=== PATIENT | female | born 1985 | race Caucasian/White ===

== ENCOUNTER 2016-08-10 17:01 | Emergency (ER) | payer OTHER ==
--- NOTE | 2016-08-10 17:32 | ED ---
Female Urogenital HPI - General Chief complaint: Urogenital Stated complaint: female Time Seen by Provider: 08/10/16 17:12 Source: patient, RN notes reviewed, old records reviewed Mode of arrival: ambulatory Limitations: no limitations - History of Present Illness Initial comments: Patient is a 31-year-old female chief complaint of vaginal discharge and itching for approximately one week. Patient reports that she had intercourse on July 27. She reports that she had no symptoms after that. Patient states that she's had no dysuria. She just reports vaginal discharge and itching. Denies any abdominal pain, fever or chills.. She is a smoker, states that she has a chronic cough. She denies any chance of . Patient denies any recent fever, chills, shortness of breath, chest pain, back pain, abdominal pain , nausea vomiting, numbness or tingling, dysuria or hematuria, constipation or diarrhea, headaches or visual changes, or any other current symptoms Last Menstrual Period: 07/27/16 - Related Data Home Medications Medication Instructions Recorded Confirmed Pregabalin [Lyrica] 50 mg PO BID 09/12/15 03/17/16 Amitriptyline HCl 25 mg PO DAILY 11/13/15 03/17/16 Ergocalciferol [Vitamin D2 50,000 unit PO TU 11/13/15 03/17/16 (DRISDOL)] Ibuprofen 600 mg PO Q6H PRN 11/13/15 03/17/16 Previous Rx's Medication Instructions Recorded FLUoxetine HCL [PROzac] 20 mg PO DAILY #30 cap 11/17/15 QUEtiapine [SEROquel] 150 mg PO HS #45 tab 11/17/15 Allergies Allergy/AdvReac Type Severity Reaction Status Date / Time No Known Allergies Allergy Verified 03/17/16 16:23 Review of Systems ROS Statement: Those systems with pertinent positive or pertinent negative responses have been documented in the HPI. ROS Other: All systems not noted in ROS Statement are negative. Past Medical History Past Medical History: No Reported History History of Any Multi-Drug Resistant Organisms: None Reported Past Surgical History: Orthopedic Surgery Additional Past Surgical History / Comment(s): left arm sx Past Psychological History: Anxiety, Bipolar, Depression Smoking Status: Current every day smoker Past Alcohol Use History: None Reported Past Drug Use History: None Reported General Exam - General Exam Comments Initial Comments: Well-appearing 31-year-old female. No distress. Limitations: no limitations General appearance: alert, in no apparent distress Head exam: Present: atraumatic, normocephalic, normal inspection Eye exam: Present: normal appearance, PERRL, EOMI. Absent: scleral icterus, conjunctival injection, periorbital swelling ENT exam: Present: normal exam, normal oropharynx, mucous membranes moist, TM's normal bilaterally Neck exam: Present: normal inspection. Absent: tenderness, meningismus, lymphadenopathy Respiratory exam: Present: normal lung sounds bilaterally. Absent: respiratory distress, wheezes, rales, rhonchi, stridor Cardiovascular Exam: Present: regular rate, normal rhythm, normal heart sounds. Absent: systolic murmur, diastolic murmur, rubs, gallop, clicks GI/Abdominal exam: Present: soft, normal bowel sounds. Absent: distended, tenderness, guarding, rebound, rigid Speculum exam: Present: vaginal discharge (Patient has purulent green vaginal discharge.), cervical discharge. Absent: normal speculum exam, erythema, vaginal bleeding, foreign body, tissue, laceration By manual exam: Present: normal by manual exam. Absent: cervical motion tenderness, adnexal tenderness, adnexal mass, uterine enlargement Extremities exam: Present: normal inspection, full ROM, normal capillary refill. Absent: tenderness, pedal edema, joint swelling, calf tenderness Back exam: Present: normal inspection Neurological exam: Present: alert, oriented X3, CN II-XII intact Psychiatric exam: Present: normal affect, normal mood Skin exam: Present: warm, dry, intact, normal color. Absent: rash Course Vital Signs 08/10/16 17:05 Temperature 98.1 F Pulse Rate 108 H Respiratory 17 Rate Blood Pressure 123/58 O2 Sat by Pulse 95 Oximetry Medical Decision Making - Medical Decision Making Patient is a 31-year-old female with chief complaint of 4 days of vaginal discharge and itching. Patient has significant purulent green/yellow vaginal discharge. She has concern for sexually transmitted infection will be treated with Rocephin, azithromycin and Flagyl. 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 Patient does test positive for Trichomonas. Patient will be treated with Rocephin and azithromycin and Flagyl. Patient advised to abstain from sexual intercourse for the next 2 weeks. Patient agrees with treatment plan will comply. Return parameters were discussed. - Lab Data Lab Results 08/10/16 08/10/16 08/10/16 Range/Units 17:51 17:51 17:51 Urine Color Yellow Urine Appearance Cloudy H (Clear) Urine pH 6.0 (5.0-8.0) Ur Specific [place] 1.022 (1.001-1.035) Urine Protein Trace H (Negative) Urine Glucose (UA) Negative (Negative) Urine Ketones Negative (Negative) Urine Blood Small H (Negative) Urine Nitrite Negative (Negative) Urine Bilirubin Negative (Negative) Urine Urobilinogen <2.0 (<2.0) mg/dL Ur Leukocyte Esterase Large H (Negative) Urine RBC 55 H (0-5) /hpf Urine WBC 45 H (0-5) /hpf Urine WBC Clumps Moderate H (None) /hpf Ur Squamous Epith Cells 26 H (0-4) /hpf Urine Bacteria Moderate H (None) /hpf Urine Mucus Rare H (None) /hpf Urine HCG, Qual Not Detected (Not Detectd) Trichomonas Ag (Rapid) Positive H (Negative) Disposition Clinical Impression: Trichomonal infection, Sexually transmitted disease Disposition: HOME SELF-CARE Condition: Good Instructions: Sexually Transmitted Diseases (ED), Trichomoniasis (ED) Additional Instructions: Avoid sexual intercourse for 2 weeks. Patient advised to follow-up with primary care provider if symptoms continue to persist. Return to emergency Department if any alarming signs or symptoms occur. Referrals: Faizan Allen MD [Primary Care Provider] - 1-2 days Time of Disposition: 18:23
[2016-08-10] MEDS ORDERED: AZITHROMYCIN 500 MG TAB PO STA (17:43)
[2016-08-10] MEDS ORDERED: metroNIDAZOLE 500 MG TAB PO STA (17:43)
[2016-08-10] MEDS ORDERED: cefTRIAXone 250 MG VIAL IM STA (17:43)
[2016-08-10] MEDS ORDERED: ONDANSETRON 4 MG ODT STARTER PACK 2 TAB BTL PO STA (17:43)
[2016-08-10 18:10] LABS: Appearance,Urine Cloudy (Clear); Bacteria,Urine Moderate /hpf; Bilirubin,Urine Negative (Negative); Glucose,Urine (UA) Negative (Negative); Ketones,Urine Negative (Negative); Leukocyte Esterase,Urine Large (Negative); Mucus,Urine Rare /hpf; Nitrite,Urine Negative (Negative); Particle Count 15213; Protein,Urine Trace (Negative); RBC,Urine 55 /hpf (0-5); Specific Gravity,Urine 1.022 (1.001-1.035); Squamous Epithelial Cell,Urine 26 /hpf (0-4); UA Billing (MACRO vs. MICRO) MICRO; Urobilinogen,Urine <2.0 mg/dL (<2.0); WBC,Urine 45 /hpf (0-5)
[2016-08-10 18:33] VITALS: BP 149/55; PULSE 90; RESP 18; TEMP 97.7
[2016-08-14 10:10] LABS: Chlamydia/GC Source Vaginal
== END 2016-08-10 18:34 | disposition home or self-care (01) ==
LOC: EC 17:01
DX: A59.9 Trichomoniasis, unspecified (principal); A64 Unspecified sexually transmitted disease; F31.9 Bipolar disorder, unspecified; F41.9 Anxiety disorder, unspecified; F17.200 Nicotine dependence, unspecified, uncomplicated; Z79.899 Other long term (current) drug therapy
CPT/HCPCS: 87591; 87491; 81001; 81025; 87808; 87070; 99284; 96372; J0696; S0119; 87205

== ENCOUNTER 2016-11-07 20:29 | Emergency (ER) | payer OTHER ==
[2016-11-07 21:14] VITALS: BP 140/78; PULSE 101; RESP 18; TEMP 97.8
--- NOTE | 2016-11-07 21:28 | ED ---
General Adult HPI - General Chief complaint: Skin/Abscess/Foreign Body Stated complaint: rash Time Seen by Provider: 11/07/16 21:17 Source: patient, RN notes reviewed Mode of arrival: ambulatory Limitations: no limitations - History of Present Illness Initial comments: Patient is a 31-year-old female who presents emergency room today with chief complaint of a rash to the hand on the right side in left forearm. Also left ear left-sided cheek. Denies any new contacts. Does admit to history of multiple topical ALLERGIES. 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 She states that she's tried nitro with some relief of symptoms but then as it wears off that it gets worse. Patient denies any recent fever, chills, shortness of breath , chest pain, back pain, abdominal pain, nausea or vomiting, numbness or tingling, dysuria or hematuria, constipation or diarrhea, headaches or visual changes, or any other complaints. - Related Data Previous Rx's Medication Instructions Recorded Famotidine [Pepcid] 20 mg PO BID #20 tablet 11/07/16 Hydrocortisone Cream 1 applic TOPICAL TID #1 cream..g. 11/07/16 [Hydrocortisone 1% Cream] diphenhydrAMINE [Benadryl] 1 - 2 tab PO Q6HR PRN #30 capsule 11/07/16 Allergies Allergy/AdvReac Type Severity Reaction Status Date / Time No Known Allergies Allergy Verified 11/07/16 21:14 Review of Systems ROS Statement: Those systems with pertinent positive or pertinent negative responses have been documented in the HPI. ROS Other: All systems not noted in ROS Statement are negative. Past Medical History Past Medical History: No Reported History Additional Past Medical History / Comment(s): multiple environmental allergies History of Any Multi-Drug Resistant Organisms: None Reported Past Surgical History: Orthopedic Surgery Additional Past Surgical History / Comment(s): left arm sx Past Psychological History: Anxiety, Bipolar, Depression Smoking Status: Current every day smoker Past Alcohol Use History: None Reported Past Drug Use History: None Reported General Exam - General Exam Comments Initial Comments: General: The patient is awake and alert, in no distress, and does not appear acutely ill. Eye: Pupils are equal, round and reactive to light, extra-ocular movements are intact. No nystagmus. There is normal conjunctiva bilaterally. No signs of icterus. Ears, nose, mouth and throat: There are moist mucous membranes and no oral lesions. Neck: The neck is supple, there is no tenderness or JVD. Cardiovascular: There is a regular rate and rhythm. No murmur, rub or gallop is appreciated. Respiratory: Lungs are clear to auscultation, respirations are non-labored, breath sounds are equal. No wheezes, stridor, rales, or rhonchi. Gastrointestinal: Soft, non-distended, non-tender abdomen without masses or organomegaly noted. There is no rebound or guarding present. No CVA tenderness. Bowel sounds are unremarkable. Musculoskeletal: Normal ROM, no tenderness. Strength 5/5. Sensation intact. Pulses equal bilaterally 2+. Neurological: A&O x 3. CN II-XII intact, There are no obvious motor or sensory deficits. Coordination appears grossly intact. Speech is normal. Skin: Patient does have small macular gravel-type rash to the lateral aspect of the right wrist volar aspect of the left forearm and left side of the cheek. Psychiatric: Cooperative, appropriate mood & affect, normal judgment. Limitations: no limitations Course Vital Signs 11/07/16 21:11 Temperature 97.8 F Pulse Rate 101 H Respiratory 18 Rate Blood Pressure 140/78 O2 Sat by Pulse 98 Oximetry Medical Decision Making - Medical Decision Making Appears to be ALLERGIC. Will be treated with Benadryl, Pepcid and steroids. Disposition Clinical Impression: Contact dermatitis Disposition: HOME SELF-CARE Condition: Good Instructions: Contact Dermatitis (ED) Additional Instructions: Please use 1-2 tabs Benadryl every 6 hours along with Pepcid as prescribed. Please use topical steroids to the hands and forearm Please follow-up with family doctor in the next 2 days of symptoms have not improved. Please return to emergency room if the symptoms increase or worsen or for any other concerns. Prescriptions: diphenhydrAMINE [Benadryl] 1 - 2 tab PO Q6HR PRN #30 capsule PRN Reason: Allergic Reaction Famotidine [Pepcid] 20 mg PO BID #20 tablet Hydrocortisone Cream [Hydrocortisone 1% Cream] 1 applic TOPICAL TID #1 cream..g. Referrals: Faizan Allen MD [Primary Care Provider] - 1-2 days Time of Disposition: 21:28
== END 2016-11-07 21:45 | disposition home or self-care (01) ==
LOC: EC 20:29
DX: L23.9 Allergic contact dermatitis, unspecified cause (principal); F17.200 Nicotine dependence, unspecified, uncomplicated
CPT/HCPCS: 99282

== ENCOUNTER 2016-12-16 11:59 | Emergency (ER) | payer OTHER ==
[2016-12-16 12:07] VITALS: BP 122/73; RESP 18; TEMP 98.1
[2016-12-16] MEDS ORDERED: ACETAMINOPHEN TAB 325 MG TAB PO STA (12:21)
[2016-12-16] MEDS ORDERED: IBUPROFEN 600 MG TAB PO STA (12:21)
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
--- NOTE | 2016-12-16 12:50 | XR ---
EXAMINATION TYPE: XR elbow complete LT DATE OF EXAM: 12/16/2016 COMPARISON: NONE HISTORY: Pain FINDINGS: Three views of the elbow demonstrate no pathologic joint effusion. There is a well-corticated density adjacent to the lateral epicondyles likely related to previous trauma. Sprain involving the radial h ead noted. Narrowing of the joint space noted. IMPRESSION: 1. No definite acute fracture. Findings suggest remote trauma and chronic arthropathy. Correlate with MRI.
[2016-12-16 13:08] VITALS: PULSE 79
== END 2016-12-16 13:11 | disposition home or self-care (01) ==
LOC: EC 11:59
DX: S53.402A Unspecified sprain of left elbow, initial encounter (principal); F17.200 Nicotine dependence, unspecified, uncomplicated; X58.XXXA Exposure to other specified factors, initial encounter
CPT/HCPCS: 99283

== ENCOUNTER 2017-01-02 23:20 | Emergency (ER) | payer OTHER ==
[2017-01-02 23:31] VITALS: BP 108/54; PULSE 102; RESP 18; TEMP 98.7
--- NOTE | 2017-01-02 23:35 | ED ---
General Adult HPI - General Chief complaint: Urogenital Stated complaint: Female Time Seen by Provider: 01/02/17 23:34 Source: patient Mode of arrival: ambulatory Limitations: no limitations - History of Present Illness Initial comments: Patient is a 31-year-old female who presents to the ED via private vehicle for evaluation of vaginal discharge. Patient states that she recently found out that her significant other whom she thought she was in a monogamous relationship with has been unfaithful. Patient states for the last week she's been experiencing some vaginal itching and increased discharge similar to previous episodes of Trichomonas infection. Patient also states that yesterday she was sexually active and experience some discomfort during sexual activity. Patient states that she has been treated for PID in the past approximately 6 years ago and Trichomonas in the past approximately 2 years ago. Patient denies any additional complaints. Specifically she denies any fevers, chills, nausea or vomiting. She denies any dysuria or urinary frequency or hesitancy. Her last menstrual period ended one week ago and she is not concern for . - Related Data Home Medications Medication Instructions Recorded Confirmed No Known Home Medications [No 01/02/17 01/02/17 Known Home Medications] Allergies Allergy/AdvReac Type Severity Reaction Status Date / Time No Known Allergies Allergy Verified 01/02/17 23:42 Review of Systems ROS Statement: Those systems with pertinent positive or pertinent negative responses have been documented in the HPI. ROS Other: All systems not noted in ROS Statement are negative. Constitutional: Denies: fever, chills Respiratory: Denies: cough Cardiovascular: Denies: chest pain Endocrine: Denies: fatigue Gastrointestinal: Denies: abdominal pain, nausea, vomiting Genitourinary: Reports: discharge, dyspareunia. Denies: urgency, dysuria, abnormal menses Musculoskeletal: Denies: back pain Skin: Denies: rash, lesions Neurological: Denies: headache, weakness Hematological/Lymphatic: Denies: easy bleeding, easy bruising Past Medical History Past Medical History: No Reported History Additional Past Medical History / Comment(s): multiple environmental allergies History of Any Multi-Drug Resistant Organisms: None Reported Past Surgical History: Orthopedic Surgery Additional Past Surgical History / Comment(s): left arm sx Past Psychological History: Anxiety, Bipolar, Depression Smoking Status: Current every day smoker Past Alcohol Use History: Occasional Past Drug Use History: None Reported General Exam Limitations: no limitations General appearance: alert, in no apparent distress Head exam: Present: atraumatic, normocephalic, normal inspection Eye exam: Present: normal appearance, PERRL, EOMI. Absent: scleral icterus, conjunctival injection, periorbital swelling ENT exam: Present: normal oropharynx Neck exam: Present: normal inspection. Absent: tenderness, meningismus, lymphadenopathy Respiratory exam: Present: normal lung sounds bilaterally. Absent: respiratory distress, wheezes, rales, rhonchi, stridor Cardiovascular Exam: Present: regular rate, normal rhythm, normal heart sounds. Absent: systolic murmur, diastolic murmur, rubs, gallop, clicks GI/Abdominal exam: Present: soft, normal bowel sounds. Absent: distended, tenderness, guarding, rebound, rigid External exam: Present: normal external exam Speculum exam: Present: vaginal discharge, cervical discharge By manual exam: Present: cervical motion tenderness. Absent: adnexal tenderness , adnexal mass, uterine enlargement, uterine tenderness Extremities exam: Present: normal inspection, full ROM. Absent: tenderness, pedal edema, joint swelling, calf tenderness Back exam: Present: full ROM Neurological exam: Present: alert, oriented X3, CN II-XII intact Psychiatric exam: Present: normal affect, normal mood Skin exam: Present: warm, dry, intact, normal color. Absent: rash Course Vital Signs 01/02/17 23:28 Temperature 98.7 F Pulse Rate 102 H Respiratory 18 Rate Blood Pressure 108/54 O2 Sat by Pulse 96 Oximetry Medical Decision Making - Medical Decision Making Patient was seen and evaluated, history was obtained from the patient Patient with a history of sexual transmitted infections including PID in the past Concern for exposure to sexual transmitted infection Pelvic exam with vaginal discharge, no strawberry cervix Empiric treatment for GC/Chlamydia and trich given Trich positive Urine positive Results were the patient. I discussed with the patient the need to have her partner tested and treated and to abstain from sexual intercourse until he is treated. Patient expressed understanding. Advised the patient that gonorrhea and chlamydia tests will not result while in the emergency department but she will be called if there are any positives and will need to follow up in the health department. Patient expressed understanding of this as she has been treated before. All questions pertaining to care were answered to the best of my ability and the patient was discharged home in stable condition. - Lab Data Lab Results 01/02/17 01/02/17 Range/Units 23:50 23:55 Urine HCG, Qual Not Detected (Not Detectd) Trichomonas Ag (Rapid) Positive H (Negative) Disposition Clinical Impression: infection, trichomonal Disposition: HOME SELF-CARE Condition: Good Instructions: Safe Sex (ED), Trichomoniasis (ED) Additional Instructions: Your partner needs to be tested and treated for trichomonas. Do not engage in unprotected sexual activity until your partner has been treated. Repeat infections can lead to scarring of the uterus and cause difficulty in conception or infertility. Referrals: Faizan Allen MD [Primary Care Provider] - 1-2 days
[2017-01-02] MEDS ORDERED: cefTRIAXone 250 MG VIAL IM STA (23:42)
[2017-01-02] MEDS ORDERED: metroNIDAZOLE 500 MG TAB PO STA (23:42)
[2017-01-02] MEDS ORDERED: AZITHROMYCIN 500 MG TAB PO STA (23:42)
== END 2017-01-03 00:35 | disposition home or self-care (01) ==
LOC: EC 23:20
DX: A59.01 Trichomonal vulvovaginitis (principal); F17.200 Nicotine dependence, unspecified, uncomplicated; Z32.02 Encounter for pregnancy test, result negative
CPT/HCPCS: 87591; 87491; 81025; 87808; 87070; 99283; 96372; J0696; 87205

== ENCOUNTER 2018-02-13 19:20 | Emergency (ER) | payer OTHER ==
[2018-02-13] MEDS ORDERED: KETOROLAC 30 MG/ML 1 ML VIAL IVP STA (20:10)
[2018-02-13] MEDS ORDERED: SODIUM CHLORIDE 0.9% 1,000 ML IV ONE (20:10)
[2018-02-13] MEDS ORDERED: diphenhydrAMINE 50 MG/ML 1 ML VIAL IVP STA (20:10)
[2018-02-13] MEDS ORDERED: METOCLOPRAMIDE 5 MG/ML 2 ML VIAL IVP STA (20:10)
--- NOTE | 2018-02-13 20:11 | ED ---
Headache HPI - General Mode of arrival: ambulatory Limitations: no limitations <Niru Mcleod - Last Filed: 02/14/18 04:25> <Laura Soto - Last Filed: 02/14/18 06:22> - General Chief Complaint: Headache Stated Complaint: migraine Time Seen by Provider: 02/13/18 20:02 - History of Present Illness Initial Comments: 32-year-old female patient presents to the emergency department today for complaints of migraine headache. Patient states the pain is located behind her eyes. States that she is sensitive to light and sound. Patient states that she has been nauseated but has not vomited. Patient does have a past medical history significant for migraine headache. States that she gets them frequently and is usually able to control them with ibuprofen however it is not working this time. States his current headache started at 10:30 this morning. States that her symptoms are consistent with her usual migraine pattern, denies any new symptoms. Denies any numbness, tingling, or weakness to her extremities. Denies any blurred or double vision. Denies any fever or chills. States that she has been having some sinus drainage for the last couple of weeks but this is not unusual at this time of year. Patient denies any recent rash, shortness breath, chest pain, abdominal pain, diarrhea, constipation, back pain, hematuria, dysuria, urinary urgency, urinary frequency, or any other complaints. Denies any chance of . (Niru Mcleod) - Related Data Home Medications Medication Instructions Recorded Confirmed No Known Home Medications 01/02/17 02/13/18 Allergies Allergy/AdvReac Type Severity Reaction Status Date / Time No Known Allergies Allergy Verified 02/13/18 20:04 Review of Systems ROS Other: All systems not noted in ROS Statement are negative. <Niru Mcleod - Last Filed: 02/14/18 04:25> ROS Other: All systems not noted in ROS Statement are negative. <Laura Soto - Last Filed: 02/14/18 06:22> ROS Statement: Those systems with pertinent positive or pertinent negative responses have been documented in the HPI. Past Medical History Past Medical History: No Reported History Additional Past Medical History / Comment(s): multiple environmental allergies History of Any Multi-Drug Resistant Organisms: None Reported Past Surgical History: Orthopedic Surgery Additional Past Surgical History / Comment(s): left arm sx Past Psychological History: Anxiety, Bipolar, Depression Smoking Status: Current every day smoker Past Alcohol Use History: Occasional Past Drug Use History: None Reported <Niru Mcleod - Last Filed: 02/14/18 04:25> General Exam Limitations: no limitations General appearance: alert, in no apparent distress, other (This is a well- developed, well-nourished adult female patient in no acute distress. Vital signs upon presentation are temperature 97.7F, pulse 93, respirations 16, blood pressure 105/60, pulse ox 100% on room air.) Eye exam: Present: normal appearance, PERRL, EOMI. Absent: scleral icterus, conjunctival injection, nystagmus, periorbital swelling ENT exam: Present: normal exam, normal oropharynx, mucous membranes moist Neck exam: Present: normal inspection, full ROM. Absent: tenderness, meningismus, lymphadenopathy Respiratory exam: Present: normal lung sounds bilaterally. Absent: respiratory distress, wheezes, rales, rhonchi, stridor Cardiovascular Exam: Present: regular rate, normal rhythm, normal heart sounds. Absent: systolic murmur, diastolic murmur, rubs, gallop, clicks GI/Abdominal exam: Present: soft, normal bowel sounds. Absent: distended, tenderness, guarding, rebound, rigid Neurological exam: Present: alert, oriented X3, CN II-XII intact, other ( Strength in all 4 extremities is 5/5.) Psychiatric exam: Present: normal affect, normal mood Skin exam: Present: warm, dry, intact, normal color. Absent: rash <Niru Mcleod M - Last Filed: 02/14/18 04:25> Vital Signs 02/13/18 02/13/18 19:38 23:00 Temperature 97.7 F 98.1 F Pulse Rate 93 80 Respiratory 16 18 Rate Blood Pressure 105/60 99/63 O2 Sat by Pulse 100 96 Oximetry Medical Decision Making <Niru Mcleod - Last Filed: 02/14/18 04:25> <Laura Soto - Last Filed: 02/14/18 06:22> - Medical Decision Making 32-year-old female patient presented to the emergency department today for evaluation of migraine headache. Physical examination is unremarkable. Patient was neurologically intact with no focal deficits. Patient has history of migraine headache, states her symptoms are consistent with her usual migraine pattern, denies any new symptoms. She was treated in the emergency department today with IV fluids and medication. Upon reevaluation states that her headache has resolved and she does feel comfortable being discharged home. She is instructed to follow up with her primary care physician to discuss possible preventative medication for migraine headache. Return parameters were discussed in detail. She verbalizes understanding and agrees with this plan. (Niru Mcleod) I was available for consultation in the emergency department. The history and physical exam were done by the midlevel provider. I was consulted for this patient's care. I reviewed the case with the midlevel provider and based on their presentation of the patient, I agree with the assessment, medical decision making and plan of care as documented. (Laura Soto) Disposition Is patient prescribed a controlled substance at d/c from ED?: No Time of Disposition: 22:44 <Niru Mcleod - Last Filed: 02/14/18 04:25> <Laura Soto - Last Filed: 02/14/18 06:22> Clinical Impression: Migraine headache Disposition: HOME SELF-CARE Condition: Good Instructions: Migraine Headache (ED) Additional Instructions: Take home medications as directed. Discuss a preventative medication with your primary care physician. Return immediately for any new, worsening, or concerning symptoms. Referrals: Isidra Guerrero DO [Primary Care Provider] - 1-2 days
[2018-02-13 23:03] VITALS: BP 99/63; PULSE 80; RESP 18; TEMP 98.1
== END 2018-02-13 23:00 | disposition home or self-care (01) ==
LOC: EC 19:20
DX: G43.909 Migraine, unspecified, not intractable, without status migrainosus (principal); J34.89 Other specified disorders of nose and nasal sinuses; F17.200 Nicotine dependence, unspecified, uncomplicated
CPT/HCPCS: 99283; 96374; 96375 ×2; 96361; J1200; J2765; J1885

== ENCOUNTER → 2018-03-02 | Outpatient (CLI) | payer OTHER ==
--- NOTE | 2018-03-02 16:48 | XR ---
EXAMINATION TYPE: XR knee complete LT DATE OF EXAM: 03/02/2018 COMPARISON: NONE HISTORY: Fall. Injury. TECHNIQUE: 3 views FINDINGS: I see no fracture nor dislocation. Joint spaces are fairly normal. There is no sign of a jaylon int effusion. IMPRESSION: Negative left knee exam.
== END | disposition home or self-care (01) ==
LOC: LABWHC1 13:37
PROVIDERS: ATTEND Emergency Medicine
DX: S83.92XA Sprain of unspecified site of left knee, initial encounter (principal); N91.2 Amenorrhea, unspecified
CPT/HCPCS: 81025

== ENCOUNTER 2018-08-02 20:21 | Emergency (ER) | payer OTHER ==
[2018-08-02 21:17] LABS: Appearance,Urine Clear (Clear); Bilirubin,Urine Negative (Negative); Blood,Urine Trace (Negative); Color,Urine Yellow; Glucose,Urine (UA) Negative (Negative); Ketones,Urine Negative (Negative); Leukocyte Esterase,Urine Large (Negative); Mucus,Urine Few /hpf; Nitrite,Urine Negative (Negative); Protein,Urine Negative (Negative); RBC,Urine 4 /hpf (0-5); Specific Gravity,Urine 1.021 (1.001-1.035); Squamous Epithelial Cell,Urine 3 /hpf (0-4); Urobilinogen,Urine <2.0 mg/dL (<2.0); WBC,Urine 13 /hpf (0-5)
[2018-08-02] MEDS ORDERED: AZITHROMYCIN 500 MG TAB PO STA (21:23)
[2018-08-02] MEDS ORDERED: cefTRIAXone 250 MG VIAL IM STA (21:23)
[2018-08-02] MEDS ORDERED: metroNIDAZOLE 500 MG TAB PO STA (21:23)
--- NOTE | 2018-08-02 21:42 | ED ---
Female Urogenital HPI - General Chief complaint: Urogenital Stated complaint: Urogenital Time Seen by Provider: 08/02/18 20:39 Source: patient Mode of arrival: ambulatory Limitations: no limitations - History of Present Illness Initial comments: 33-year-old female patient presents to the emergency department today for evaluation of white vaginal discharge and genital itching. Patient states that symptoms started a little over a week ago. Patient states her period just ended yesterday. Patient states that she's had trichomonas infection before and symptoms seem similar. She denies any recent antibiotic use. Denies any chance of . Denies any abdominal pain, back pain, fever, or chills. He denies any dysuria, hematuria, urinary urgency, urinary frequency. Patient denies any recent rash, shortness breath, chest pain, nausea, vomiting, diarrhea, constipation, back pain, numbness, tingling, dizziness, weakness, headache, visual changes, or any other complaints. Last Menstrual Period: 07/26/18 - Related Data Home Medications Medication Instructions Recorded Confirmed No Known Home Medications 01/02/17 08/02/18 Allergies Allergy/AdvReac Type Severity Reaction Status Date / Time No Known Allergies Allergy Verified 08/02/18 20:35 Review of Systems ROS Statement: Those systems with pertinent positive or pertinent negative responses have been documented in the HPI. ROS Other: All systems not noted in ROS Statement are negative. Past Medical History Past Medical History: No Reported History Additional Past Medical History / Comment(s): multiple environmental allergies, vertigo History of Any Multi-Drug Resistant Organisms: None Reported Past Surgical History: Orthopedic Surgery Additional Past Surgical History / Comment(s): left arm sx Past Psychological History: Anxiety, Bipolar, Depression Smoking Status: Current every day smoker Past Alcohol Use History: Occasional Past Drug Use History: None Reported General Exam Limitations: no limitations General appearance: alert, in no apparent distress, other (Physical well- developed, well-nourished adult female patient in no acute distress. Vital signs upon presentation are temperature 98.1F, pulse 94, respirations 17, blood pressure 111/79, pulse ox 99% on room air.) Eye exam: Present: normal appearance, PERRL, EOMI. Absent: scleral icterus, conjunctival injection, periorbital swelling ENT exam: Present: normal exam, normal oropharynx, mucous membranes moist Respiratory exam: Present: normal lung sounds bilaterally. Absent: respiratory distress, wheezes, rales, rhonchi, stridor Cardiovascular Exam: Present: regular rate, normal rhythm, normal heart sounds. Absent: systolic murmur, diastolic murmur, rubs, gallop, clicks GI/Abdominal exam: Present: soft, normal bowel sounds. Absent: distended, tenderness, guarding, rebound, rigid External exam: Present: normal external exam Speculum exam: Present: vaginal discharge (White frothy discharge). Absent: normal speculum exam By manual exam: Present: normal by manual exam. Absent: cervical motion tenderness, adnexal tenderness Back exam: Present: normal inspection. Absent: CVA tenderness (R), CVA tenderness (L) Neurological exam: Present: alert, oriented X3, CN II-XII intact Psychiatric exam: Present: normal affect, normal mood Skin exam: Present: warm, dry, intact, normal color. Absent: rash Course Vital Signs 08/02/18 08/02/18 20:30 21:54 Temperature 98.1 F 98.5 F Pulse Rate 94 89 Respiratory 17 18 Rate Blood Pressure 111/79 111/59 O2 Sat by Pulse 99 100 Oximetry Medical Decision Making - Medical Decision Making 33-year-old female patient presents to the emergency department today for evaluation of vaginal discharge and genital itching. Physical examination did reveal white frothy discharge on pelvic exam. No cervical motion tenderness, no adnexal tenderness. Patient was positive for trichomoniasis. We did treat with azithromycin, Flagyl, and IM Rocephin. 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 Return parameters were discussed in detail. She verbalizes understanding and agrees with this plan. - Lab Data Lab Results 08/02/18 08/02/18 08/02/18 Range/Units 20:55 20:55 20:55 Urine Color Yellow Urine Appearance Clear (Clear) Urine pH 6.0 (5.0-8.0) Ur Specific [place] 1.021 (1.001-1.035) Urine Protein Negative (Negative) Urine Glucose (UA) Negative (Negative) Urine Ketones Negative (Negative) Urine Blood Trace H (Negative) Urine Nitrite Negative (Negative) Urine Bilirubin Negative (Negative) Urine Urobilinogen <2.0 (<2.0) mg/dL Ur Leukocyte Esterase Large H (Negative) Urine RBC 4 (0-5) /hpf Urine WBC 13 H (0-5) /hpf Ur Squamous Epith Cells 3 (0-4) /hpf Urine Mucus Few H (None) /hpf Urine HCG, Qual Not Detected (Not Detectd) Trichomonas Ag (Rapid) Positive H (Negative) Disposition Clinical Impression: Trichomonas infection Disposition: HOME SELF-CARE Condition: Good Instructions (If sedation given, give patient instructions): Sexually Transmitted Diseases (ED), Trichomoniasis (ED) Additional Instructions: Follow-up with primary care physician for recheck in 1-2 days. Return to the emergency department immediately for any new, worsening, or concerning symptoms. Is patient prescribed a controlled substance at d/c from ED?: No Referrals: Isidra Guerrero DO [Primary Care Provider] - 1-2 days Time of Disposition: 21:42
[2018-08-02 21:55] VITALS: BP 111/59; PULSE 89; RESP 18; TEMP 98.5
[2018-08-03 14:55] LABS: N. gonorrhoeae,PCR Negative (Neg,Equiv); Neisseria Source Vagina
[2018-08-03 14:56] LABS: C. trachomatis,PCR Negative (Neg,Equiv); Chlamydia trachomatis Source Vagina
== END 2018-08-02 21:58 | disposition home or self-care (01) ==
LOC: EC 20:21
DX: A59.01 Trichomonal vulvovaginitis (principal); F17.200 Nicotine dependence, unspecified, uncomplicated
CPT/HCPCS: 81001; 81025; 87808; 87491; 87591; 87070; 87205; 99283; 96372; J0696

== ENCOUNTER → 2020-02-24 | Outpatient (CLI) | payer OTHER ==
--- NOTE | 2020-02-24 16:02 | CONS ---
CONSULTATION DATE OF SERVICE: 02/24/2020 A 34-year-old lady who has been evaluated in the [facility] for possible obstructive sleep apnea-hypopnea syndrome and significant excessive daytime sleepiness. HISTORY OF PRESENT ILLNESS/SLEEP-WAKE EVALUATION: Patient's usual sleep schedule on working days from 8 - 9 p.m. until 7:20 am and on weekends from around 9 p.m. until 9: 30 - 10:00 am. She may stay in bed until 11 a.m. or noontime. She does have problems with falling asleep. She has TV set in bedroom. She sleeps in different positions with loud snoring and witnessed episodes of stopped breathing during the sleep by her family. She wakes up from sleep at least 5 times with up to 5 episodes of nocturia. She also has dry mouth and episodes of gasping for air and heartburn. In the morning, patient wakes up tired, has difficulties paying attention, falling asleep during the day, has problems with memory, concentration, irritability, depression and anxiety. [place] Sleepiness Scale is in extremely high range of 19. She takes usually about one nap a day, but she could take more than that. Usually, she does not feel refreshed after naps, may see vivid dreams during naps. May have seeing dreams at the beginning of the night, right after falling asleep, possibly hypnagogic hallucinations. No history of cataplexy or sleep paralysis. PAST MEDICAL HISTORY: Positive for episodes of heartburn, recent bronchitis. MEDICATIONS: Presently none. PAST SURGICAL HISTORY: None. SOCIAL HISTORY: Positive for smoking about one pack a day for 12 years. Alcohol consumption rarely. FAMILY HISTORY: Fibromyalgia, asthma, sleep apnea, mental illness. REVIEW OF SYSTEMS: Multiple awakenings from sleep, significant excessive daytime sleepiness. PHYSICAL EXAM: A lady without distress, BP 107/76, HR about 100, RR 15, height 5, 1, weight 253.2, temperature 98.1. Oxygen saturation at room air 95%. OROPHARYNX: Extremely low position of soft palate. Mallampati 4. Wide neck 18 inches in circumference, BMI 47.8. ABDOMEN: Obese. LUNGS: Clear to percussion and to auscultation. Good air exchange. A few wheezes. HEART: S1, S2 regular. No murmurs, gallops, or rubs. EXTREMITIES: No clubbing or cyanosis. BEAUTY COUNSELOR: Awake, alert, and oriented X3. Cranial nerves 2 to 7 intact. There is no fasciculation or atrophy. noted. No focal deficits observed. IMPRESSION: 1. Loud snoring, witnessed episodes of stopped breathing during the sleep, extremely low position of soft palate, wide neck, sleepiness, obstructive sleep apnea- hypopnea syndrome. 2. Significant excessive daytime sleepiness with [place] Sleepiness Scale 19. Positive history of hypnagogic hallucinations and vivid dreams during naps. Differential diagnosis should include narcolepsy. 3. Obesity, body mass index 47.8. 4. History of recent bronchitis. PLAN: 1. After treatment of obstructive sleep apnea, patient will continue to have sleepiness. She may need multiple sleep latency test. 2. CPAP/BiPAP titration if sleep study confirms obstructive sleep apnea-hypopnea syndrome. 3. Preferable position during sleep on the side. 4. No driving if patient feels any sleepiness. 5. I will see patient for follow up visit to explain results of testing and following plan. Thank you very much for referring this patient for consultation. Sincerely, Ty Harp MD, PhD, FAASM Diplomat of [place] [employer] [place] [employer] [facility] [place] MMODL / IJN: [id number] /
== END | disposition home or self-care (01) ==
LOC: SLEEP 14:22
PROVIDERS: ATTEND Internal Medicine
DX: G47.33 Obstructive sleep apnea (adult) (pediatric) (principal); E66.9 Obesity, unspecified; Z86.59 Personal history of other mental and behavioral disorders; Z68.42 Body mass index [BMI] 45.0-49.9, adult; Z87.09 Personal history of other diseases of the respiratory system
CPT/HCPCS: 99211

== ENCOUNTER 2020-12-05 20:26 | Emergency (ER) | payer OTHER ==
[2020-12-05] MEDS ORDERED: AMOXICILLIN 875 MG TAB PO STA (21:29)
--- NOTE | 2020-12-05 21:30 | ED ---
ENT HPI - General Chief complaint: ENT Stated complaint: Swollen throat Time Seen by Provider: 12/05/20 21:12 Source: patient Mode of arrival: ambulatory Limitations: no limitations - History of Present Illness Initial comments: 35-year-old male presents to emergency department with chief complaint of sore throat. Patient reports the symptoms of an uncomfortable past 3 days. She does report having chills at home but denies any fevers. States she does not have any cough. States she does have pain with swallowing but denies any drooling or difficulty breathing. States she has noticed some white patches in the back of her throat. States she had some amoxicillin and she only took 2 days worth of it then stopped because she ran out of it. Denies any changes to her voice. Denies any swelling of the neck. Not diabetic. - Related Data Previous Rx's Medication Instructions Recorded Amoxicillin 875 mg PO Q12HR #20 tablet 12/05/20 Allergies Allergy/AdvReac Type Severity Reaction Status Date / Time No Known Allergies Allergy Verified 12/05/20 21:05 Review of Systems ROS Statement: Those systems with pertinent positive or pertinent negative responses have been documented in the HPI. ROS Other: All systems not noted in ROS Statement are negative. Past Medical History Past Medical History: No Reported History Additional Past Medical History / Comment(s): multiple environmental allergies, vertigo History of Any Multi-Drug Resistant Organisms: None Reported Past Surgical History: Orthopedic Surgery Additional Past Surgical History / Comment(s): left arm sx Past Psychological History: Anxiety, Bipolar, Depression Past Alcohol Use History: Occasional Past Drug Use History: None Reported General Exam Limitations: no limitations General appearance: alert, in no apparent distress, obese Head exam: Present: atraumatic, normocephalic, normal inspection Eye exam: Present: normal appearance, PERRL Pupils: Present: normal accommodation ENT exam: Present: normal exam, mucous membranes moist, TM's normal bilaterally, normal external ear exam. Absent: normal oropharynx (Bilateral tonsillar erythema, enlargement or exudates) Neck exam: Present: normal inspection, full ROM, lymphadenopathy (Anterior cervical) Respiratory exam: Present: normal lung sounds bilaterally. Absent: respiratory distress, wheezes, rales, rhonchi, stridor Cardiovascular Exam: Present: regular rate, normal rhythm, normal heart sounds. Absent: systolic murmur GI/Abdominal exam: Present: soft. Absent: distended, tenderness, guarding, rebound Extremities exam: Present: normal inspection, full ROM, normal capillary refill. Absent: tenderness, pedal edema, joint swelling Back exam: Present: normal inspection, full ROM. Absent: tenderness Neurological exam: Present: alert, oriented X3 Psychiatric exam: Present: normal affect, normal mood Skin exam: Present: warm, dry, intact, normal color Course Vital Signs 12/05/20 12/05/20 21:00 22:23 Temperature 98.3 F 98.0 F Pulse Rate 108 H 100 Respiratory 20 16 Rate Blood Pressure 110/60 106/59 O2 Sat by Pulse 97 99 Oximetry Medical Decision Making - Medical Decision Making 35-year-old male presents to emergency Department with a chief complaint of a sore throat. Physical examination, patient appears to have strep pharyngitis. I will treat based on clinical suspicion. Patient will be started amoxicillin. No signs of peritonsillar abscess. Return parameters were thoroughly discussed the patient is an attending agreeable. Case discussed with physician. Disposition Clinical Impression: Tonsillitis, Pharyngitis Disposition: HOME SELF-CARE Condition: Stable Instructions (If sedation given, give patient instructions): Pharyngitis (ED) Additional Instructions: Please return to the Emergency Department if symptoms worsen or any other concerns. Prescriptions: Amoxicillin 875 mg PO Q12HR #20 tablet Is patient prescribed a controlled substance at d/c from ED?: No Referrals: Lianne Lester MD [Primary Care Provider] - 1-2 days Time of Disposition: 21:30
[2020-12-05 22:23] VITALS: BP 106/59; PULSE 100; RESP 16; TEMP 98
== END 2020-12-05 22:24 | disposition home or self-care (01) ==
LOC: EC 20:26
DX: J03.90 Acute tonsillitis, unspecified (principal); F41.9 Anxiety disorder, unspecified; F31.9 Bipolar disorder, unspecified
CPT/HCPCS: 99282

== ENCOUNTER → 2024-06-23 | Outpatient (CLI) | payer OTHER ==
[2024-06-23 16:05] VITALS: BP 117/72; PULSE 91; RESP 16; TEMP 98.1; BMI 47.7
--- NOTE | 2024-06-23 16:38 | P.HPBAR ---
Bariatric H&P - History & Physicial H&P Date: 06/23/24 History & Physicial: Visit/CC: NEW Patient initial contact: Initial weight: Initial weight in pounds: Height: 5 ft 1 in Initial BMI: Last weight: Current weight: 114.759 kg Current weight in pounds: 253.00 Current BMI: 47.7 [place] body weight (based on NIH guidelines): 47.72 kg Excess body weight loss: The patient is a 38 year-old F who presents for Bariatric Assessment. She has tried everthing in the past. She did wegovy, lost 30 pounds. Was on saxenda. She has stomach pains. She was on saxenda for 4 months to wegovt for 1 year. She gained weight. Grandma with trouble with weight and had gastric bypass. GM was 400 pounds to 1-- pounds. She has acid reflux. Gallbladder is removed. NO stomach cancer. No esophageall cancer. No blood clots. NO chrons disese. Needs labs. Use Vital Metrix pal. Past Medical History Past Medical History: GERD/Reflux, Sleep Apnea/CPAP/BIPAP Additional Past Medical History / Comment(s): multiple environmental allergies, vertigo, sleep apnea-cpap History of Any Multi-Drug Resistant Organisms: None Reported Past Surgical History: Cholecystectomy, Orthopedic Surgery Additional Past Surgical History / Comment(s): left arm sx, Laparscopic cyst on ovaries Past Anesthesia/Blood Transfusion Reactions: No Reported Reaction Past Psychological History: Anxiety, Bipolar, Depression Smoking Status: Vaper Past Alcohol Use History: Occasional Past Drug Use History: None Reported - Past Family History Father Additional Family Medical History / Comment(s): panic attacks Surgical - Exam Vital Signs Temp Pulse Resp BP 98.1 F 91 16 117/72 06/23/24 15:55 06/23/24 15:55 06/23/24 15:55 06/23/24 15:55 Bariatric Checklist Checklist: Plan: Checklist: EGD: 1. Hiatal hernia: 2. H. Pylori: HgbA1c: Vitamin D: Smoking: Current every day smoker Primary care physician referral: JEREMY Psychiatry clearance: Cardiology clearance: Sleep study: Diet journal: VTE risk score: VTE risk level: Rehab needs at discharge:
== END ==
LOC: BARWHC3 15:18
PROVIDERS: ATTEND Surgery Plastic and Reconstructive Surgery
DX: F17.210 Nicotine dependence, cigarettes, uncomplicated (principal); E66.01 Morbid (severe) obesity due to excess calories; Z68.42 Body mass index [BMI] 45.0-49.9, adult
CPT/HCPCS: 99211

== ENCOUNTER → 2024-06-24 | Outpatient (CLI) | payer OTHER ==
[2024-06-24 14:40] LABS: Partial Thromboplastin Time 23.8 sec (22.0-30.0); Prothrombin Time 10.7 sec (10.0-12.5)
[2024-06-24 20:09] LABS: HCT 41.1 % (37.2-46.3); HGB 13.2 g/dL (12.0-15.0); MCH 29.3 pg (27.0-32.0); MCHC 32.1 g/dL (32.0-37.0); MCV 91.3 FL (80.0-97.0); NRBC Per 100 WBC 0 X 10*3/uL (0.00-0.01); Platelet Count 280 X 10*3/uL (140-440); RDW 13.6 % (11.5-14.5); WBC 9.56 X 10*3/uL (4.50-10.00)
[2024-06-24 23:56] LABS: % Iron Saturation 23.69 (12.00-45.00); ALT 39 U/L (8-44); AST 19 U/L (13-35); Albumin 4.1 g/dL (3.8-4.9); Albumin/Globulin Ratio 1.32 Ratio (1.60-3.17); Alkaline Phosphatase 82 U/L (41-126); BUN/Creat Ratio 15.78 Ratio (12.00-20.00); Blood Urea Nitrogen 14.2 mg/dL (9.0-27.0); Calcium 9.3 mg/dL (8.7-10.3); Carbon Dioxide 22.6 mmol/L (21.6-31.8); Chloride 104 mmol/L (96-109); Globulin 3.1 g/dL (1.6-3.3); Glucose 123 mg/dL (70-110); Iron 86 UG/DL (50-170); LDL Cholesterol,Calculated 115.8 mg/dL (0.0-131.0); Magnesium 1.9 mg/dL (1.5-2.4); Potassium 4.3 mmol/L (3.5-5.5); Sodium 140 mmol/L (135-145); Total Bilirubin 0.2 mg/dL (0.3-1.2); Total Iron Binding Capacity 363 UG/DL (228-460); Total Protein 7.2 g/dL (6.2-8.2)
[2024-06-25 13:50] LABS: Zinc, Serum 67 ug/dL (60-130)
== END | disposition home or self-care (01) ==
LOC: LABWHC1 13:17
PROVIDERS: ATTEND Surgery Plastic and Reconstructive Surgery
DX: E55.9 Vitamin D deficiency, unspecified (principal); E89.1 Postprocedural hypoinsulinemia; E66.01 Morbid (severe) obesity due to excess calories; E44.0 Moderate protein-calorie malnutrition; E45 Retarded development following protein-calorie malnutrition; D50.9 Iron deficiency anemia, unspecified; D50.8 Other iron deficiency anemias; N19 Unspecified kidney failure; K50.90 Crohn's disease, unspecified, without complications; K74.1 Hepatic sclerosis; T56.894A Toxic effect of other metals, undetermined, initial encounter
CPT/HCPCS: 84255; 84134; 84425; 80061; 80053; 82607; 82728; 82525; 82746; 83540; 83550; 83735; 84590; 84630; 85027; 85610; 85730; 82306; 83970; 83036; 80307; 93005; 36415; G0480; 80323

== ENCOUNTER 2024-07-26 07:33 | Day surgery (SDC) | payer OTHER ==
[~2024-07-26 07:33] MED LIST: LACTATED RINGERS 1,000 ML IV SCH
[2024-07-26 07:53] VITALS: TEMP 97.9
[2024-07-26] MEDS: LACTATED RINGERS 1,000 ML IV ONE (07:53)
--- NOTE | 2024-07-26 07:56 | P.GSHP ---
History of Present Illness H&P Date: 07/26/24 CHIEF COMPLAINT: GERD HISTORY OF PRESENT ILLNESS: The patient is a 38-year-old female who presents reports gastroesophageal reflux disease. Upper endoscopy was offered for further evaluation and management. PAST MEDICAL HISTORY: Please see list. PAST SURGICAL HISTORY: Please see list. MEDICATIONS: Please see list. ALLERGIES: Please see list. SOCIAL HISTORY: No illicit drug use FAMILY HISTORY: No reports of Crohn disease or ulcerative colitis. REVIEW OF ORGAN SYSTEMS: CONSTITUTIONAL: No reports of fevers or chills. GI: Denies any blood in stools or constipation. PHYSICAL EXAM: VITAL SIGNS: Stable GENERAL: Well-developed and pleasant in no acute distress. HEENT: No scleral icterus. Extraocular movements grossly intact. Moist buccal mucosa. NECK: Supple without lymphadenopathy. CHEST: Unlabored respirations. Equal bilateral excursions. CARDIOVASCULAR: Regular rate and rhythm. Distal 2+ pulses. ABDOMEN: Soft, nondistended. MUSCULOSKELETAL: No clubbing, cyanosis, or edema. ASSESSMENT: 1. Gastroesophageal reflux disease PLAN: 1. Recommend proceeding with an upper endoscopy Past Medical History Past Medical History: GERD/Reflux, Hearing Disorder / Deafness, Sleep Apnea/CPAP/BIPAP Additional Past Medical History / Comment(s): multiple environmental allergies, vertigo, sleep apnea-cpap, scoliosis, sciatica, degenerative disc disease, migraines, right ear [place] History of Any Multi-Drug Resistant Organisms: None Reported Past Surgical History: Cholecystectomy, Orthopedic Surgery Additional Past Surgical History / Comment(s): left arm sx, laparscopic surg cyst on ovaries Past Anesthesia/Blood Transfusion Reactions: No Reported Reaction Smoking Status: Current every day smoker - Past Family History Father Additional Family Medical History / Comment(s): panic attacks Medications and Allergies Home Medications Medication Instructions Recorded Confirmed Type Ergocalciferol [Vitamin D2 (1250 50,000 unit PO WEEKLY 06/28/24 07/22/24 History Mcg = 61463 Iu)] Butalb/APAP/Caff 50-325-40Mg 1 tab PO Q4H PRN 07/22/24 07/22/24 History [Fioricet 50-325-40] HYDROcodone/APAP 10-325MG [[place] 1 tab PO TID PRN 07/22/24 07/22/24 History 10-325] Allergies Allergy/AdvReac Type Severity Reaction Status Date / Time No Known Allergies Allergy Verified 07/22/24 10:48 Surgical - Exam Vital Signs Temp Pulse Resp BP Pulse Ox 97.9 F 81 18 106/58 94 L 07/26/24 07:51 07/26/24 07:51 07/26/24 07:51 07/26/24 07:51 07/26/24 07:51
[2024-07-26] MEDS ORDERED: LIDOCAINE 2% (PF) 20 MG/ML 5 ML VIAL ONE (07:58)
[2024-07-26] MEDS ORDERED: PROPOFOL 10 MG/ML 20 ML VIAL IV ONE (07:58)
[2024-07-26 08:30] VITALS: BP 120/82; PULSE 78; RESP 18
--- NOTE | 2024-07-26 08:32 | P.PCN ---
Date of Procedure: 07/26/24 Description of Procedure: PREOPERATIVE DIAGNOSIS: Gastroesophageal reflux disease. Morbid obesity. Tobacco abuse disorder POSTOPERATIVE DIAGNOSIS: Gastroesophageal reflux disease. Morbid obesity. Gastritis. Gastric ulcers without bleeding Diaphragmatic hiatal hernia OPERATION: Esophagogastroduodenoscopy with cold forceps biopsies along esophagus, antrum and duodenum SURGEON: Nury Coleman MD ANESTHESIA: MAC. INDICATIONS: The patient is a 38-year-old female who presents with reflux disease. Benefits and risks of the procedure were described. Informed consent was obtained. DESCRIPTION: The patient was brought into the endoscopy suite and laid in the left lateral decubitus position. An Olympus gastroscope was passed along the posterior oropharynx down to the distal esophagus where the squamocolumnar junction was encountered at 36 cm from the incisors. The stomach was entered and no bile reflux was found. Additional findings are listed below. Biopsies with cold forceps were obtained of the antrum. The first through third portion of the duodenum was examined. Retroflexion of the scope confirmed Hill grade 3 lower esophageal valve. The squamocolumnar junction demonstrated LA grade B erosive esophagitis. The stomach was desufflated. The patient tolerated the procedure well. FINDINGS: Squamocolumnar junction 35 cm from the incisors. Diaphragmatic hiatus at 36 cm. Hiatal hernia, 1 cm Hill grade 2 lower esophageal valve. LA grade B erosive esophagitis. Biopsies obtained Biopsies obtained of the duodenum. Chronic gastritis with biopsies obtained. Acute gastric ulcer 2 mm without acute bleeding, antrum RECOMMENDATIONS: Omeprazole 40 mg daily for 2 weeks Tobacco cessation counseling performed greater than 3 minutes Plan - Discharge Summary Discharge Rx Participant: No New Discharge Prescriptions: New Omeprazole [PriLOSEC] 40 mg PO DAILY #14 cap Continue Butalb/APAP/Caff 50-325-40Mg [Fioricet 50-325-40] 1 tab PO Q4H PRN PRN Reason: migraines Ergocalciferol [Vitamin D2 (1250 Mcg = 79116 Iu)] 50,000 unit PO WEEKLY HYDROcodone/APAP 10-325MG [[place] 10-325] 1 tab PO TID PRN PRN Reason: Pain Discharge Medication List Ergocalciferol [Vitamin D2 (1250 Mcg = 18124 Iu)] 50,000 unit PO WEEKLY 06/28/24 [History] Butalb/APAP/Caff 50-325-40Mg [Fioricet 50-325-40] 1 tab PO Q4H PRN 07/22/24 [History] HYDROcodone/APAP 10-325MG [[place] 10-325] 1 tab PO TID PRN 07/22/24 [History] Omeprazole [PriLOSEC] 40 mg PO DAILY #14 cap 07/26/24 [Rx] [facility]Ref[place] [facility] [place] [place] [facility] [place] 08/11/24 3:00 pm Patient Instructions/Handouts: Hiatal Hernia (DC), Peptic Ulcer (GEN), How to Stop Smoking (DC) Discharge Disposition: HOME SELF-CARE
== END 2024-07-26 08:49 | disposition home or self-care (01) ==
LOC: ORWHC2ENDO 07:33
PROVIDERS: ATTEND Surgery Plastic and Reconstructive Surgery
DX: K21.00 Gastro-esophageal reflux disease with esophagitis, without bleeding (principal); K22.89 Other specified disease of esophagus; K31.89 Other diseases of stomach and duodenum; K44.9 Diaphragmatic hernia without obstruction or gangrene; K25.3 Acute gastric ulcer without hemorrhage or perforation; K29.50 Unspecified chronic gastritis without bleeding; E66.01 Morbid (severe) obesity due to excess calories; F17.290 Nicotine dependence, other tobacco product, uncomplicated; F41.9 Anxiety disorder, unspecified; F32.A Depression, unspecified; G47.30 Sleep apnea, unspecified; H91.90 Unspecified hearing loss, unspecified ear; R42 Dizziness and giddiness; M41.9 Scoliosis, unspecified; G43.909 Migraine, unspecified, not intractable, without status migrainosus; M54.30 Sciatica, unspecified side; G47.33 Obstructive sleep apnea (adult) (pediatric); Z68.42 Body mass index [BMI] 45.0-49.9, adult; Z90.49 Acquired absence of other specified parts of digestive tract; Z98.890 Other specified postprocedural states
CPT/HCPCS: 81025; 88305; 88312; 88342; 43239; J2704; J2003

== ENCOUNTER → 2024-08-23 | Outpatient (CLI) | payer OTHER ==
[2024-08-23 13:15] VITALS: BMI 49.3
== END ==
LOC: BARWHC3 12:59
PROVIDERS: ATTEND Surgery Plastic and Reconstructive Surgery
DX: E66.01 Morbid (severe) obesity due to excess calories (principal); F17.200 Nicotine dependence, unspecified, uncomplicated
CPT/HCPCS: 97804

== ENCOUNTER → 2024-11-10 | Outpatient (CLI) | payer OTHER ==
[2024-11-10 16:19] VITALS: BP 120/79; PULSE 85; RESP 16; TEMP 98.3; BMI 49.1
--- NOTE | 2024-11-10 17:00 | P.BASOAP ---
Subjective Progress Note Date: 11/10/24 She reports has gained weighted. She has trouble pooping. Needs lactulose. Needs sleeve consent. Repeat vitamin D. She is drinking 70 oz water. Objective - Vital Signs Vital signs: Vital Signs Temp 98.3 F 11/10/24 16:16 Pulse 85 11/10/24 16:16 Resp 16 11/10/24 16:16 BP 120/79 11/10/24 16:16 Pulse Ox FiO2 Intake & Output 11/09/24 11/10/24 11/10/24 18:59 06:59 18:59 Weight 117.934 kg Assessment/Plan Plan: Date: 11/10/24 Initial Weight: 114.759 kg Initial BMI: 47.7 Current Weight: 117.934 kg Current BMI: 49.1 Type of Surgery: Total Volume in Band: Previous Volume: Volume Removed: Volume Added: Band Size:
== END ==
LOC: BARWHC3 15:03
PROVIDERS: ATTEND Surgery Plastic and Reconstructive Surgery
DX: E66.01 Morbid (severe) obesity due to excess calories (principal); F17.200 Nicotine dependence, unspecified, uncomplicated; Z68.42 Body mass index [BMI] 45.0-49.9, adult
CPT/HCPCS: 99211